=== PATIENT | female | born 1955 | race Caucasian/White ===

== ENCOUNTER → 2023-02-09 | Outpatient (CLI) | payer MEDICARE | LOC: MC.RAD 10:15 | DX: Z12.31 Encounter for screening mammogram for malignant neoplasm of breast (principal); Z85.3 Personal history of malignant neoplasm of breast ==

== ENCOUNTER 2024-05-02 07:34 | Day surgery (SDC) | payer MEDICARE ==
[~2024-05-02] VITALS: Ht 182.9 cm; Wt 104.9 kg
[~2024-05-02 07:34] MED LIST: LR 1,000 ML IV SCH
[2024-05-02] MEDS ORDERED: FLEXERIL 1010 MG/TAB PO (08:25)
[2024-05-02] MEDS ORDERED: HYDROCHLOROTH12.5 MG PO (08:25)
[2024-05-02] MEDS ORDERED: SPIRIVA RE2.5 MCG/Ac IH (08:26)
[2024-05-02] MEDS ORDERED: VESICARE10 MG PO (08:26)
[2024-05-02] MEDS ORDERED: PRAVACHOL 40MG40 MG PO (08:27)
[2024-05-02] MEDS ORDERED: PROTONIX 40MG T40 MG PO (08:27)
[2024-05-02] MEDS ORDERED: ARICEPT10 MG PO (08:27)
[2024-05-02] MEDS ORDERED: TAPAZOLE5 MG PO (08:28)
[2024-05-02] MEDS ORDERED: PROZAC 10MG10 MG PO (08:28)
[2024-05-02] MEDS ORDERED: HYDROmorphone 2 MG/1 ML VIAL ONE (09:16)
[2024-05-02] MEDS ORDERED: fentaNYL 50 MCG/ML 2 ML VIAL ONE (10:22)
[2024-05-02] MEDS ORDERED: Lidocaine PF 2% (20 MG/ML) 10 ML POLY AMP IJ ONE (10:39)
[2024-05-02 11:25] VITALS: BP 154/69; PULSE 78; TEMP 97
[2024-05-02 11:30] VITALS: BP 148/69; PULSE 73
[2024-05-02] MEDS ORDERED: Morphine 4 MG/ML VIAL IV PRN (11:30)
[2024-05-02] MEDS ORDERED: Ondansetron 4 MG/2 ML VIAL IV PRN (11:30)
[2024-05-02 11:45] VITALS: BP 154/66; PULSE 70
--- NOTE | 2024-05-02 12:23 | NUR ---
At 1125-Report received from KERA Jaeger RN. Pt returned via cart to [facility]. Pts spouse present in room upon return. Pt A&O. VSS-see flowsheet. Clean, intact bandaid to left side of neck. Transparent dressing clean, dry and intact to left chest PAC site. PAC is accessed from OR. Pt denies pain or nausea. Side rails up with call light in reach on bedside table. Pt on room air. 1223-Pt has tolerated oral intake. VS remain stable. Voicing she is ready to go home. IV removed, pressure dressing applied. Dressing remains intact surgical sites. Discharge teaching completed, pt verbalized understanding. Pt dressed independently, then taken via wheelchair to private vehicle for dc home with driving.
== END 2024-05-02 12:23 | disposition home or self-care (01) ==
LOC: SDCO 07:34
DX: Z45.2 Encounter for adjustment and management of vascular access device (principal); C15.5 Malignant neoplasm of lower third of esophagus; C50.911 Malignant neoplasm of unspecified site of right female breast; C79.51 Secondary malignant neoplasm of bone; Z85.820 Personal history of malignant melanoma of skin; K21.9 Gastro-esophageal reflux disease without esophagitis; Z87.891 Personal history of nicotine dependence
CPT/HCPCS: C1788; J0690; J1170; J1644; J2704; J3010; J7120